=== PATIENT | female | born 1950 | race Caucasian/White ===

== ENCOUNTER → 2017-12-26 10:58 | Outpatient (CLI) | payer OTHER ==
[~2017-12-26 10:58] MED LIST: CIPRO750 MG PO; CLONAZEPAM1 MG PO; DOCUSATE SODIU100 MG PO; NEURONTIN PO; PERCOCET 5/3251 TAB PO
== END | disposition home or self-care (01) ==
LOC: LAB 10:58
DX: D68.8 Other specified coagulation defects (principal)

== ENCOUNTER → 2017-12-26 11:02 | Outpatient (CLI) | payer OTHER | END | disposition home or self-care (01) | LOC: RAD 11:02 | DX: Z01.818 Encounter for other preprocedural examination (principal) ==

== ENCOUNTER 2017-12-30 08:57 | Inpatient (IN) | payer OTHER ==
[~2017-12-30] VITALS: Ht 157.5 cm; Wt 68.0 kg
[2018-01-02] MEDS ORDERED: OXYC1TAB9 PO (08:38)
[2018-01-02] MEDS ORDERED: INTEGRA PLUS C1 EACH PO (08:38)
[2018-01-02] MEDS ORDERED: XARELTO10 MG PO (08:38)
== END 2018-01-02 14:28 | DRG 470 ==
LOC: SURG 08:57 → O/R 12:17 → SURH 12:17
PROVIDERS: Orthopaedic Surgery Sports Medicine
PROC: 0SRB0JZ Replacement of Left Hip Joint with Synthetic Substitute, Open Approach (ICD-10-PCS; principal; 2017-12-30 12:00)
DX: M16.12 Unilateral primary osteoarthritis, left hip (principal)